=== PATIENT | male | born 1970 | race Caucasian/White ===

== ENCOUNTER 2017-01-18 09:28 | Emergency (ER) | payer BC ==
[~2017-01-18] VITALS: Ht 180.3 cm; Wt 100.0 kg
[~2017-01-18 09:28] MED LIST: CYCL-319 PO; DIAZ-90 PO; HYDR-762 PO; IBUP-727; IBUP800T25 PO; PRED20TA PO
[2017-01-18 09:35] VITALS: Ht 180.3 cm; Wt 100.0 kg
[2017-01-18] MEDS ORDERED: IBUPROFEN 800 MG TAB PO ONE (10:00)
--- NOTE | 2017-01-18 10:34 | RADRPT ---
PROCEDURE: Left foot series. CLINICAL INDICATION: Left foot pain. TECHNIQUE: Three views of the left foot are available for review. COMPARISON: None available FINDINGS: There is normal mineralization and alignment of the bones of the left foot. Lisfranc's joint appear s intact. There is a bipartite medial sesamoid. The sesamoid fracture could also potentially have this appearance, particularly given the presence of pain on the ball of the foot. Joint spaces are well maintained. No osteophytes or erosions are seen. The soft tissues are within normal limits. IMPRESSION: 1. Bipartite medial sesamoid. A sesamoid fracture is difficult to differentiate from this normal variant, and if there is high clinical suspicion for fracture, MRI should be obtained. 2. Otherwise unremarkable left foot series. RPTAT: KK .Slade Louise MD, MD Date Time Electronically viewed and signed by .Slade Louise MD, MD on 01/18/2017 10:33 .B/
[2017-01-18] MEDS ORDERED: CYCL-319 PO (10:50)
[2017-01-18] MEDS ORDERED: NAPR-688 PO (10:50)
[2017-01-18] MEDS ORDERED: METH500T PO (10:50)
--- NOTE | 2017-01-18 10:56 | ERD ---
ER Documentation Chief Complaint Date/Time DATE: 01/18/17 TIME: 10:53 Chief Complaint C/O LEFT FOOT PAIN. NO TRAUMA. HPI This 46-year-old male presents emergency room with 2 weeks of pain in his left ball of foot on the medial side. The pain is made worse by walking and pressure. He does exercise regularly and uses a treadmill as well as elliptical machine. He is still ambulatory but does have pain. He has not tried taking anything at today. He had no specific moment of trauma. ROS All systems reviewed and are negative except as per history of present illness. Medications Home Meds Active Scripts Cyclobenzaprine Hcl* (Cyclobenzaprine Hcl*) 10 Mg Tablet, 10 MG PO Q8 Y for PAIN , #60 TAB Prov:PEG ZIMMERMAN DO 01/18/17 Methocarbamol* (Robaxin*) 500 Mg Tab, 500 MG PO Q8, #14 TAB Prov:PEG ZIMMERMAN DO 01/18/17 Naproxen* (Naproxen*) 500 Mg Tablet, 500 MG PO BID, #20 TAB Prov:PEG ZIMMERMAN DO 01/18/17 Discontinued Reported Medications Ibuprofen (Motrin) 600 Mg Tablet 02/26/12 [None] No Conflict Check 03/31/11 Discontinued Scripts Ibuprofen* (Motrin*) 800 Mg Tab, 800 MG PO Q6, #30 TAB Prov:FARIBA ECHEVERRIA MD 04/24/16 Cyclobenzaprine Hcl* (Cyclobenzaprine Hcl*) 10 Mg Tablet, 10 MG PO TID, #30 TAB Prov:FARIBA ECHEVERRIA MD 04/24/16 Prednisone* (Prednisone*) 20 Mg Tab, 40 MG PO DAILY for 4 Days, TAB Prov:FARIBA ECHEVERRIA MD 04/24/16 Hydrocodone Bit-Acetaminophen* (Madison*) 10-325 Mg Tablet, 1 TAB PO Q6 Y for PAIN , #15 TAB Prov:FARIBA ECHEVERRIA MD 04/24/16 Diazepam* (Valium*) 5 Mg Tablet, 5 MG PO Q8 Y for PAIN, #20 TAB Prov:CLEOPATRA MORGAN MD 10/25/15 Ibuprofen* (Motrin*) 800 Mg Tab, 800 MG PO Q8 Y for PAIN, #20 TAB Prov:CLEOPATRA MORGAN MD 10/25/15 Hydrocodone Bit-Acetaminophen* (Madison*) 10-325 Mg Tablet, 1 TAB PO Q8 Y for PAIN , #20 TAB Prov:CLEOPATRA MORGAN MD 10/25/15 Allergies Allergies: Coded Allergies: bee venom protein (honey bee) (Verified Allergy, Severe, ANAPHYLAXIS, 01/18) PMhx/Soc History of Surgery: No Anesthesia Reaction: No Hx Neurological Disorder: No Hx Respiratory Disorders: No Hx Cardiac Disorders: No Hx Psychiatric Problems: No Hx Miscellaneous Medical Probl: Yes (SPINAL STENOSIS, HERNIATED DISC LUMBAR SPINE) Hx Alcohol Use: Yes (beers) Hx Substance Use: No Hx Tobacco Use: No Physical Exam Vitals Vital Signs Date Time Temp Pulse Resp B/P Pulse Ox O2 Delivery O2 Flow Rate FiO2 01/18/17 09:35 98.6 76 19 136/71 99 Physical Exam Const: [] No distress Ext: No cyanosis, or edema. Foot is normal in appearance with good pulses and capillary refill. With very strong pressure to distal area of first metatarsal patient does feel the pain. Full range of motion with no deformities. Results 24 hrs Current Medications Medications (Trade) Dose Ordered Sig/Mahnaz Route PRN Reason Start Time Stop Time Status Last Admin Dose Admin Ibuprofen (Motrin) 800 mg ONCE ONCE PO 01/18/17 10:00 01/18/17 10:01 DC 01/18/17 10:12 Procedures/MDM Fracture of left medial sesamoid versus stress fracture versus foot sprain. Patient was given 800 mg Profen emergency room which did help ease the pain. Recommending the 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 Discharging with naproxen as well as muscle relaxer. X-ray interpretation, left foot: The medial sesamoid bone is in 2 pieces. I see no other fracture dislocation or foreign body. Radiologist mentions that a bipartite sesamoid bone is difficult to appreciate for fracture. Departure Diagnosis: Primary Impression: Foot pain Condition: Stable Patient Instructions: Fracture, Foot Additional Instructions: Call your primary care doctor TOMORROW for an appointment during the next 2-3 days. Get a referral for an MRI. See the doctor sooner or return here if your condition worsens before your appointment time. PEG ZIMMERMAN DO Jan 18, 2017 10:56
== END 2017-01-18 11:39 | disposition home or self-care (01) ==
LOC: E/R 09:28
DX: M79.672 Pain in left foot (principal)

== ENCOUNTER → 2017-05-10 | Outpatient (CLI) | payer BC ==
[~2017-05-10] MED LIST changes: -DIAZ-90 PO; -HYDR-762 PO; -IBUP-727; -IBUP800T25 PO; +METH500T PO; +NAPR-688 PO; -PRED20TA PO
[2017-05-10 08:40] LABS: BASOPHILS % 0.4 % (0.0-2.0); EOSINOPHILS # 0.4 10^3/ul (0.0-0.5); EOSINOPHILS % 7.7 % (0.0-7.0); HEMATOCRIT 48.5 % (42.0-52.0); HEMOGLOBIN 16.5 g/dl (14.0-18.0); LYMPHOCYTES # 1.4 10^3/ul (0.8-2.9); LYMPHOCYTES % 28.3 % (15.0-51.0); MEAN CORPUSCULAR HEMOGLOBIN 29.3 pg (29.0-33.0); MEAN PLATELET VOLUME 9.7 fl (7.4-10.4); MONOCYTE # 0.4 10^3/ul (0.3-0.9); MONOCYTES % 8.5 % (0.0-11.0); NEUTROPHILS % 54.9 % (39.0-77.0); PLATELET COUNT 205 10^3/UL (140-415); RED BLOOD COUNT 5.64 10^6/ul (4.70-6.10); RED CELL DISTRIBUTION WIDTH 12.2 % (11.5-14.5); WHITE BLOOD COUNT 4.9 10^3/ul (4.8-10.8)
[2017-05-10 09:16] LABS: ALBUMIN 4.5 g/dl (3.3-4.9); ALBUMIN/GLOBULIN RATIO 1.45; BILIRUBIN,INDIRECT 0.8 mg/dl (0-1.1); BILIRUBIN,TOTAL 0.8 mg/dl (0.2-1.3); CALCIUM 9.1 mg/dl (8.4-10.2); CHOL/HDL RATIO 3.8 RATIO; CREATININE 0.86 mg/dl (0.61-1.24); POTASSIUM 4.2 mmol/L (3.5-5.1); TOTAL PROTEIN 7.6 g/dl (6.1-8.1)
== END | disposition home or self-care (01) ==
LOC: LAB 08:18
PROVIDERS: ATTEND Internal Medicine
DX: E78.5 Hyperlipidemia, unspecified (principal); R73.03 Prediabetes
CPT/HCPCS: 80053; 80061; 83036; 85025